=== PATIENT | female | born 1960 | race Caucasian/White ===

== ENCOUNTER 2019-05-21 05:39 | Emergency (ER) | payer BC, OTHER ==
[2019-05-21] MEDS ORDERED: BACITRACIN 0.9 GM PACKET ONE (06:05)
[2019-05-21 06:20] VITALS: BMI 20.2
[2019-05-21] MEDS ORDERED: FAMOTIDINE 20 MG/50 ML IVPB 20 MG/50 ML MG IVPB ONE ×2 (06:44→06:48)
[2019-05-21] MEDS ORDERED: methylPREDNISolone NA SUCC 125 MG/2 ML VIAL IVPUSH ONE (06:44)
[2019-05-21] MEDS ORDERED: methylPREDNISolone NA SUCC 125 MG/2 ML VIAL ONE (06:48)
--- NOTE | 2019-05-21 07:12 | PDOC ---
History of Present Illness - General Chief Complaint: Edema Stated Complaint: FACE SWELLING Time Seen by Provider: 05/21/19 07:12 History Source: Patient, Family Exam Limitations: No Limitations - History of Present Illness Initial Comments: 58 year old female with PMH DM, HLD presented to ED with son for facial swelling after using a face cream. Pt admitted to nausea, shortness of breath. Pt denied vomiting, lightheadedness, chest pain. Pt reported she has not had an allergic reaction like this prior. ROS General: denied fever, chills, generalized weakness. HEENT: denied sore throat, rhinorrhea, ear pain. Cardiovascular: denied chest pain, palpitations, syncope, diaphoresis. Respiratory: admitted to shortness of breath. denied cough, sputum production, hemoptysis. Gastrointestinal: admitted to nausea. denied abdominal pain, vomiting, diarrhea , constipation, blood in stool. Genitourinary: denied dysuria, increased urinary frequency, hematuria, urinary incontinence, flank pain. Back: denied back pain. Musculoskeletal: denied joint pain, muscle pain, joint swelling. Neurological: denied headache, dizziness, numbness, tingling, weakness. Integumentary: denied rash, laceration, abrasion. Hematologic/Lymphatic: denied bruising or bleeding. PE Constitutional: Well-nourished, Well-developed, appearing stated age. HEENT: head is normocephalic, atraumatic. EOMI. PERRLA. generalized facial swelling. Neck: supple. Full ROM. Cardiovascular: regular heart rhythm. no murmurs. no pericardial friction rub. Respiratory: clear to auscultation bilaterally. no crackles, rhonchi or wheezing. no stridor. Gastrointestinal: soft, nontender. normal bowel sounds. no rebound, guarding, masses. Extremities: peripheral pulses intact. no lower extremity edema. Neurological: CN 2-12 grossly intact. moves all four extremities. Psych: awake, alert, oriented x3. follows commands. answers questions appropriately. Past History - Past Medical History Allergies/Adverse Reactions: Allergies Allergy/AdvReac Type Severity Reaction Status Date / Time No Known Allergies Allergy Verified 05/21/19 06:20 Home Medications: Ambulatory Orders Glipizide [Glipizide ER] 5 mg PO BID 02/16/13 Insulin Glargine,Hum.rec.anlog [Lantus (10mL VIAL) -] 20 units SQ HS 02/16/13 Dicyclomine HCl [Bentyl] 20 mg PO Q6H PRN #20 tablet 05/01/15 metFORMIN HCL [Metformin HCl] 500 mg PO DAILY 05/01/15 Famotidine [Pepcid -] 20 mg PO DAILY #7 tablet 05/21/19 predniSONE [Deltasone -] 40 mg PO DAILY #8 tablet 05/21/19 Diabetes: Yes Hypercholesterolemia: Yes - Immunization History Td Vaccination: Yes Immunization Up to Date: Yes - Suicide/Smoking/Psychosocial Hx Smoking Status: No Smoking History: Current every day smoker Have you smoked in the past 12 months: Yes Number of Cigarettes Smoked Daily: 4 Information on smoking cessation initiated: No 'Breaking Loose' booklet given: 09/17/13 Hx Alcohol Use: No Drug/Substance Use Hx: No Substance Use Type: None *Physical Exam - Vital Signs Last Vital Signs Temp Pulse Resp BP Pulse Ox 97.9 F 60 16 131/65 97 05/21/19 07:07 05/21/19 07:07 05/21/19 07:07 05/21/19 07:07 05/21/19 07:07 ED Treatment Course - Medications Given in the ED: ED Medications Discontinued Medications Generic Name Dose Route Start Last Admin Trade Name Freq PRN Reason Stop Dose Admin Diphenhydramine HCl 25 mg 05/21/19 06:44 05/21/19 06:56 Benadryl Injection - IVPUSH 05/21/19 06:45 25 mg ONCE ONE Administration Methylprednisolone Sodium Succinate 125 mg 05/21/19 06:44 05/21/19 06:56 Solu-Medrol - IVPUSH 05/21/19 06:45 125 mg ONCE ONE Administration Medical Decision Making - Medical Decision Making 58 year old female with above PMH presented to ED for facial swelling, SOB, nausea after using a new face cream. Initial Vital Signs Temp Pulse Resp BP Pulse Ox 97.8 F 63 15 135/67 100 05/21/19 05:39 05/21/19 05:39 05/21/19 05:39 05/21/19 05:39 05/21/19 05:39 Afebrile. No tachycardia. No tachypnea. No hypotension. No hypoxia on room air. Labs ordered: none Imaging ordered: none Medications given: pepcid, benadryl, solumedrol Vital Signs Temperature 97.9 F 05/21/19 07:07 Pulse Rate 60 05/21/19 07:07 Respiratory Rate 16 05/21/19 07:07 Blood Pressure 131/65 05/21/19 07:07 O2 Sat by Pulse Oximetry (%) 97 05/21/19 07:07 No tachycardia. No tachypnea. No hypotension. No hypoxia on room air. Pt reported improvement of symptoms, denied shortness of breath, reported she would like to return home. Pt discharged. Discharge medications: Pepcid 20 mg PO daily x7 days, Prednisone 40 mg PO daily x4 days -Over the counter Benadryl *DC/Admit/Observation/Transfer Diagnosis at time of Disposition: Allergic reaction, Facial swelling - Discharge Dispostion Disposition: HOME Condition at time of disposition: Improved Decision to Admit order: No - Prescriptions Prescriptions: Famotidine [Pepcid -] 20 mg PO DAILY #7 tablet predniSONE [Deltasone -] 40 mg PO DAILY #8 tablet - Referrals Referrals: Suly Martinez [Non Staff, Medical] - - Patient Instructions Printed Discharge Instructions: DI for General Allergic Reactions Additional Instructions: You were seen today for an allergic reaction. STOP using all face and body creams. Buy free and clear products. Continue taking Benadryl over the counter, take as advised on label. I have sent a prescription to your pharmacy for Prednisone, a steroid, take as advised on label. Follow up with your primary care doctor within 3 days. Your care is not complete until you follow up. I have given you a referral for an [employer]. Return to the Emergency Department for increasing swelling, difficulty breathing , vomiting, chest pain, shortness of breath, lightheadedness, or any other new, worsening or concerning symptoms. CENTRAL AFRICAN TRANSLATION PROVIDED BY [employer] TRANSLATE Te vieron hoy por janay reaccin alrgica. DEJE de usar todas las cremas faciales y corporales. Compre productos gratuitos y transparentes. Contine tomando Benadryl sin receta mdica, tmelo nilton se indica en la etiqueta. He enviado janay receta a martinez farmacia para la prednisona, un esteroide, shadi nilton se indica en la etiqueta. Regina un seguimiento con martinez mdico de atencin primaria dentro de los 3 jose. Martinez atencin no estar completa hasta que realice el seguimiento. Te he dado janay referencia para un alerglogo. Regrese al Departamento de emergencias para aumentar la hinchazn, dificultad para respirar, vmitos, dolor en el pecho, falta de aliento, aturdimiento o cualquier otro sntoma nuevo, que empeore o se relacione. Print Language: CENTRAL AFRICAN - Post Discharge Activity Forms/Work/School Notes: Back to Work
--- NOTE | 2019-05-21 08:11 | PDOC ---
Attending Attestation - Resident Resident Name: Rena Marin - ED Attending Attestation I have performed the following: I have examined & evaluated the patient, The case was reviewed & discussed with the resident, I agree w/resident's findings & plan, Exceptions are as noted - HPI HPI: 05/21/19 08:04 58yo female who used new face cream that she bought at a spa. Used cream #2 labeled Bleach to her face now with swelling and itching. Pt received benadryl, solumedrol, pepcid. Pt without lip or tongue swelling. No sob. No diarrhea. No stridor or wheezing. Pt speaking in full sentences and tolerating secretions. This was the first time the patient used the cream to her face. - Physicial Exam PE: 05/21/19 08:06 Gen: aaox3, swelling to her eyes and upper cheeks heent: PERRL, EOMI, posterior pharynx without swelling, soft tissue swelling around the eyes and upper cheeks, dry skin to lower face and upper neck with itching - no lip or tongue swelling, uvula midline, no erythema neck: no stridor, no swelling heart: +s1s2 reg lungs: cta b/l abd: soft, nt/nd +bs skin: dry itchy skin to face and upper neck - Medical Decision Making 05/21/19 08:08 a/p: 58yo female with allergic reaction to her topical skin care -pt received allergy meds prior to evaluation -pt feeling much better, itching controlled, swelling improved -per son at the bedside, swelling around eyes has improved -still with soft tissue swelling, but no visual changes per pt -pt states feeling much improved -speaking in full sentences, tolerating secretions -pt did not receive epi and there is no emergent indication for epi -discussed outpt management and follow up with allergy -discussed med dosing and use of epi as outpt -discussed all reasons to return to the ED -answered all questions, son and pt verbalize understanding of all instructions -pt is stable for dc to home
[2019-05-21 08:41] VITALS: BP 152/82; PULSE 70; TEMP 98.2
== END 2019-05-21 08:41 | disposition home or self-care (01) ==
LOC: JER 05:39
PROC: 3E033GC Introduction of Other Therapeutic Substance into Peripheral Vein, Percutaneous Approach (ICD-10-PCS; principal; 2019-05-21)
PROC: 3E033GC Introduction of Other Therapeutic Substance into Peripheral Vein, Percutaneous Approach (ICD-10-PCS; 2019-05-21)
PROC: 3E0333Z Introduction of Anti-inflammatory into Peripheral Vein, Percutaneous Approach (ICD-10-PCS; 2019-05-21)
DX: T78.49XA Other allergy, initial encounter (principal); X58.XXXA Exposure to other specified factors, initial encounter
CPT/HCPCS: 99283-25

== ENCOUNTER 2020-07-08 09:31 | Emergency (ER) | payer OTHER ==
[2020-07-08 09:42] VITALS: BMI 27.8
--- OUTSIDE RECORDS SUMMARY | 2020-07-08 09:44 | XMS ---
:1960 Author Organization [facility] Support Name Relationship Address Phone JUVE DUTTON SON [address] [phone] [place] [address] UE Unavailable Unavailable Unavailable CAESAR GIANG DAUGHTER [address] [place] [address] [place] [address] CAESAR OTOOLE DAUGHTER [address] [place] [address] Re-disclosure Warning The records that you are about to access may contain information from federally- assisted alcohol or drug abuse programs. If such information is present, then the following federally mandated warning applies: This information has been disclosed to you from records protected by federal confidentiality rules (42 CFR part 2). The federal rules prohibit you from making any further disclosure of this information unless further disclosure is expressly permitted by the written consent of the person to whom it pertains or as otherwise permitted by 42 CFR part 2. A general authorization for the release of medical or other information is NOT sufficient for this purpose. The Federal rules restrict any use of the information to criminally investigate or prosecute any alcohol or drug abuse patient.The records that you are about to access may contain highly sensitive health information, the redisclosure of which is protected by Article 27-F of the [facility] Public Health law. If you continue you may haveaccess to information: Regarding HIV / AIDS; Provided by facilities licensed or operated by the [facility] Office of Mental Health; or Provided by the [facility] Office for People With Developmental Disabilities. If such information is present, then the following [facility] mandated warning applies: This information has been disclosed to you from confidential records which are protected by state law. State law prohibits you from making any further disclosure of this information without the specific written consent of the person to whom it pertains, or as otherwise permitted by law. Any unauthorized further disclosure in violation of state law may result in a fine or custodial sentence or both. A general authorization for the release of medical or other information is NOT sufficient authorization for further disclosure. Insurance Providers Payer name Policy type Policy ID Covered Covered alliance party's Policy P pepe / Coverage alliance party ID relationship to [facility] ormation type mead ANA [id number] CAP
--- NOTE | 2020-07-08 10:12 | PDOC ---
History of Present Illness - General Chief Complaint: Constipation Stated Complaint: Constipation/LT LEG PAIN Time Seen by Provider: 07/08/20 09:40 History Source: Patient - History of Present Illness Initial Comments: 07/08/20 10:34 59F w/hx HTN, HLD, DM p/w 3 days of constipation, acute onset abdominal pain. She reports one similar episode of constipation several years ago that resolved in the hospital. She reports being unable to move her bowels for three days, but has been passing gas without difficulty. She reports acute onset 06/30 diffuse abdominal pain today which prompted the ED visit. She denies any nausea, vomiting, weakness, confusion. She has not taken anything for constipation at [facility] before presentation. She endorses chills, and LLE pain as well as pain radiating from her abdomen to her back. Past History - Medical History Allergies/Adverse Reactions: Allergies Allergy/AdvReac Type Severity Reaction Status Date / Time No Known Allergies Allergy Verified 07/08/20 09:37 Home Medications: Ambulatory Orders Ertugliflozin Pidolate [Steglatro] 0 mg PO ASDIR 07/08/20 COPD: No Diabetes: Yes Hypercholesterolemia: Yes - Immunization History Td Vaccination: Yes Immunization Up to Date: Yes - Psycho-Social/Smoking History Smoking Status: No Smoking History: Never smoked Have you smoked in the past 12 months: Yes Number of Cigarettes Smoked Daily: 4 'Breaking Loose' booklet given: 09/17/13 - Substance Abuse Hx (Audit-C & DAST Scrn) How often the patient has a drink containing alcohol: Never Score: In Men: 4 or > Positive; In Women: 3 or > Positive: 0 Screen Result (Pos requires Nsg. Audit-10AR): Negative Review of Systems - Review of Systems Able to Perform ROS?: Yes Comments:: 07/08/20 11:13 GENERAL/CONSTITUTIONAL: No fever or chills. No weakness. HEAD, EYES, EARS, NOSE AND THROAT: No change in vision. No ear pain or discharge. No sore throat. CARDIOVASCULAR: No chest pain or shortness of breath RESPIRATORY: No cough, wheezing, or hemoptysis. GASTROINTESTINAL: Abdominal pain, constipation. No nausea, vomiting, diarrhea or constipation. GENITOURINARY: No dysuria, frequency, or change in urination. MUSCULOSKELETAL: No joint or muscle swelling or pain. No neck or back pain. SKIN: No rash NEUROLOGIC: No headache, vertigo, loss of consciousness, or change in strength/sensation. ENDOCRINE: No increased thirst. No abnormal weight change HEMATOLOGIC/LYMPHATIC: No anemia, easy bleeding, or history of blood clots. ALLERGIC/IMMUNOLOGIC: No hives or skin allergy. *Physical Exam - Vital Signs Last Vital Signs Temp Pulse Resp BP Pulse Ox 98 F 85 18 160/72 100 07/08/20 09:34 07/08/20 09:34 07/08/20 09:34 07/08/20 09:34 07/08/20 09:34 - Physical Exam 07/08/20 11:39 GENERAL: Groaning, clutching abdomen. Awake, alert, and fully oriented HEAD: No signs of trauma, normocephalic, atraumatic EYES: Conjunctival injection. PERRLA, EOMI, sclera anicteric ENT: Auricles normal inspection, hearing grossly normal, nares patent, oropharynx clear without exudates. Moist mucosa NECK: Normal ROM, supple, no lymphadenopathy, JVD, or masses LUNGS: No distress, speaks full sentences, clear to auscultation bilaterally HEART: Regular rate and rhythm, normal S1 and S2, no murmurs, rubs or gallops, peripheral pulses normal and equal bilaterally. ABDOMEN: Diffuse tenderness. Soft, normoactive bowel sounds. No rebound. No masses EXTREMITIES : Normal inspection, Normal range of motion, no edema. No clubbing or cyanosis NEUROLOGICAL: Cranial nerves II through XII grossly intact. Normal speech, no focal sensorimotor deficits SKIN: Warm, Dry, normal turgor, no rashes or lesions noted ED Treatment Course - LABORATORY CBC & Chemistry Diagram: 07/08/20 10:10 07/08/20 10:10 Medical Decision Making - Medical Decision Making 07/08/20 11:43 59F w/hx HTN p/w 3 days of constipation, severe abdominal pain, diffuse tenderness on exam without nausea/vomiting. Ddx uncomplicated constipation, although pain with diffuse tenderness may be out of proportion to typical 3 day constipation concerning for viscus rupture. Obstruction possible, less likely without nausea/vomiting. Plan: KUB CT Abdomen/pelvis w/contrast CBC CMP Mag citrate pending CT Fleet enema pending CT Likely manual disempaction 1L LR Ofirmev Dispo: Likely discharge pending imaging --- CBC, CMP - wnl KUB - no free air noted, constipation On reassessment, patient reports significant reduction of pain s/p ofirmev --- Formal CT read pending, no free air or air fluid levels noted. Patient reports pain has begun to worsen again. --- CT - notable for large amount of stool without obstruction. Discussed results with patient, as well as consent for manual disempaction. On manual disempaction with female mailing manager present, large amount of stool palpated, broken up manually in rectal vault. Plan for fleet enema, mag citrate. --- On reassessment, patient reports large volume formed stool passage with resolution of pain. Plan for discharge with close PCP follow up. Discharge - Discharge Information Problems reviewed: Yes Clinical Impression/Diagnosis: Constipation, Abdominal pain Condition: Stable Disposition: HOME - Admission No - Follow up/Referral - Patient Discharge Instructions Patient Printed Discharge Instructions: DI for Constipation Additional Instructions: You were seen in the ER for constipation. Your symptoms improved after an enema and oral medication. Continue to stay hydrated by drinking water and take over the counter medication as needed to control your constipation. Follow up with your primary care provider as soon as possible, in the next 2-3 days. Return to the ER if you develop high fevers, chest pain, difficulty breathing, intractable vomiting and nausea. - Post Discharge Activity
[2020-07-08] MEDS ORDERED: LACTATED RINGERS SOLUTION 1000 ML INFUS.BAG IV ONE (10:14)
[2020-07-08] MEDS ORDERED: ACETAMINOPHEN 1000 MG/100 ML VIAL (NON FORMULARY) IVPB ONE (10:14)
[2020-07-08] MEDS ORDERED: ACETAMINOPHEN INJECTION 100 ML IVPB ONE (10:24)
[2020-07-08 10:39] LABS: BASO % 0.4 % (0-2.0); EOS % 1.4 % (0-4.5); HEMATOCRIT 30.7 % (32.4-45.2); HEMOGLOBIN 10.2 GM/dL (10.7-15.3); MCH 25.8 pg (25.7-33.7); MCHC 33.2 g/dl (32.0-36.0); MEAN CELL VOLUME 77.7 fl (80-96); MEAN PLT VOLUME 7.9 fl (7.5-11.1); MONO % 3.6 % (3.8-10.2); NEUT % 78.6 % (42.8-82.8); PLATELET COUNT 267 K/MM3 (134-434); RBC 3.95 M/mm3 (3.60-5.2); RDW 14.3 % (11.6-15.6); WHITE BLOOD COUNT 9.9 K/mm3 (4.0-10.0)
[2020-07-08 11:15] LABS: ALBUMIN 3.6 g/dl (3.4-5.0); BILIRUBIN,TOTAL 0.3 mg/dL (0.2-1); BLOOD UREA NITROGEN 38.7 mg/dL (7-18); CALCIUM 9.8 mg/dL (8.5-10.1); CREATININE 1.1 mg/dL (0.55-1.3); POTASSIUM 5.2 mmol/L (3.5-5.1); TOT PROT 7.7 g/dl (6.4-8.2)
[2020-07-08 12:53] LABS: EPI CELLS 18 /uL (0-25.1); HYALINE CASTS 0 /uL (0-3.1); URINE APPEARANCE CLEAR; URINE BACTERIA 1392 /uL (0-1359); URINE BILIRUBIN NEGATIVE (NEGATIVE); URINE COLOR YELLOW; URINE GLUCOSE (UA) 3+ (NEGATIVE); URINE KETONE NEGATIVE (NEGATIVE); URINE LEUK ESTERASE NEGATIVE (NEGATIVE); URINE NITRITE NEGATIVE (NEGATIVE); URINE PROTEIN 2+ (NEGATIVE); URINE RBC 28 /uL (0-23.9); URINE UROBILINOGEN 0.2 mg/dL (0.2-1.0); URINE WBC 4 /uL (0-25.8)
--- NOTE | 2020-07-08 13:18 | PDOC ---
Documentation entered by Robbie Beck SCRIBE, acting as scribe for Abimael Ibrahim MD. Abimael Ibrahim MD: This documentation has been prepared by the nancyibe, Robbie Beck SCRIBE, under my direction and personally reviewed by me in its entirety. I confirm that the documentation accurately reflects all work, treatment, procedures, and medical decision making performed by me. Attending Attestation - Resident Resident Name: Tramaine Alvarado - ED Attending Attestation I have performed the following: I have examined & evaluated the patient, The case was reviewed & discussed with the resident, I agree w/resident's findings & plan, Exceptions are as noted - HPI HPI: 07/08/20 10:09 The patient is a 59 year old female with a significant past medical history of DM and HLD who presents to the emergency department for evaluation of abdominal pain and constipation that began three days ago. The patient reports diffuse abdominal pain and tenderness that began three days ago and has worsened this morning. She endorses flatulence. She notes a similar episode a few years ago. Denies taking anything for relief. LBM: three days ago, normal The patient denies chest/back pain, cough, and shortness of breath. Denies fever, chills, nausea, vomiting. Denies any symptoms. Denies any other symptoms. Allergies: NKA Social Hx: The patient reports she currently smokes 4 cigarettes per day. Denies illicit drug use and alcohol consumption. Surgical Hx: None reported - Physicial Exam PE: 07/08/20 09:58 GENERAL: Awake, alert, and fully oriented, in no acute distress but appears uncomfortable EYES: PERRLA, EOMI, sclera anicteric, conjunctiva clear ENT: Oropharynx clear without exudates. Moist mucosa NECK: Normal ROM, supple, no lymphadenopathy, JVD, or masses LUNGS: Breath sounds equal, clear to auscultation bilaterally. No wheezes, and no crackles HEART: Regular rate and rhythm, normal S1 and S2, no murmurs, rubs or gallops ABDOMEN: Soft, diffuse abd ttp, no CVAT. No guarding, no rebound. No masses EXTREMITIES: Normal range of motion, no edema. No clubbing or cyanosis. No cords, erythema, or tenderness NEUROLOGICAL: Normal speech, cranial nerves intact, equal strength and sensation b/l SKIN: Warm, Dry, normal turgor, no rashes or lesions noted. - Medical Decision Making 07/08/20 12:46 59yo F presents to the ED with diffuse abd pain and constipation for 3 days DDx includes constipation vs obstruction vs colitis vs gastritis vs diverticulitis Plan -labs -UA -CTAP -pain control -reassess 07/08/20 15:[address] scan with no acute pathology. CT scan with large fecal burden. Rectal exam with no impaction, stool is soft in the vault. Patient was given a Fleet enema and moved her bowels. She feels significantly better. Patient is clinically well-appearing and stable for discharge home. I discussed the physical exam findings, ancillary test results and final diagnoses with the patient. I answered all of the patient's questions. The patient was satisfied with the care received and felt comfortable with the discharge plan and treatment plan. The patient will call their primary care physician within 24 hours to arrange follow-up and will return to the Emergency Department with any new, persistent or worsening symptoms. Discharge - Discharge Information Problems reviewed: Yes Clinical Impression/Diagnosis: Constipation, Abdominal pain Condition: Stable Disposition: HOME - Follow up/Referral - Patient Discharge Instructions Patient Printed Discharge Instructions: DI for Constipation Additional Instructions: You were seen in the ER for constipation. Your symptoms improved after an enema and oral medication. Continue to stay hydrated by drinking water and take over the counter medication as needed to control your constipation. Follow up with your primary care provider as soon as possible, in the next 2-3 days. Return to the ER if you develop high fevers, chest pain, difficulty breathing, intractable vomiting and nausea. - Post Discharge Activity
[2020-07-08] MEDS ORDERED: MINERAL OIL ENEMA 133 ML ENEMA PR ONE (14:21)
[2020-07-08] MEDS ORDERED: SODIUM PHOSPHATE/NA BIPHOS 133 ML ENEMA PR ONE (14:39)
[2020-07-08] MEDS ORDERED: MAGNESIUM CITRATE 300 ML BOTTLE PO ONE (14:44)
[2020-07-08] MEDS ORDERED: MAGNESIUM CITRATE 300 ML BOTTLE ONE (15:07)
[2020-07-08 15:53] VITALS: BP 149/89; PULSE 70; TEMP 97.8
== END 2020-07-08 15:54 | disposition home or self-care (01) ==
LOC: JER 09:31
PROC: 3E0333Z Introduction of Anti-inflammatory into Peripheral Vein, Percutaneous Approach (ICD-10-PCS; principal; 2020-07-08)
DX: K59.00 Constipation, unspecified (principal); R10.9 Unspecified abdominal pain
CPT/HCPCS: 36415; 74018-TC-FY; 74177-TC; 80053; 81003; 83605; 83690; 85025; 87086; 99285-25; J0131

== ENCOUNTER 2022-06-02 13:22 | Emergency (ER) | payer OTHER ==
[2022-06-02 13:45] VITALS: BMI 20.7
[2022-06-02] MEDS ORDERED: ACETAMINOPHEN 325 MG TABLET (FP) PO ONE (14:43)
[2022-06-02] MEDS ORDERED: KETOROLAC TROMETHAMINE 30 MG/1 ML VIAL IM ONE (14:43)
[2022-06-02] MEDS ORDERED: ACETAMINOPHEN 325 MG TABLET (FP) ONE (16:43)
[2022-06-02] MEDS ORDERED: KETOROLAC TROMETHAMINE 30 MG/1 ML VIAL ONE (16:43)
[2022-06-02 17:25] VITALS: BP 185/85; PULSE 80; RESP 16; TEMP 98.3
== END 2022-06-02 18:19 | disposition home or self-care (01) ==
LOC: JER 13:22
DX: S82.892A Other fracture of left lower leg, initial encounter for closed fracture (principal); V03.10XA Pedestrian on foot injured in collision with car, pick-up truck or van in traffic accident, initial encounter
CPT/HCPCS: 71101-TC-LT-FY; 73610-TC-LT-FY; 73630-TC-LT; 93005; 93010; 93971-TC; 99284-25

== ENCOUNTER 2024-02-05 19:34 | Inpatient (IN) | payer OTHER ==
[2024-02-05] MEDS ORDERED: ACETAMINOPHEN INJECTION 100 ML IVPB ONE (20:22)
[2024-02-05] MEDS: ACETAMINOPHEN 1000 MG/100 ML BAG IVPB ONE (20:50)
[2024-02-05 21:33] LABS: CHLORIDE 109 mmol/L (98-107); POTASSIUM 4.7 mmol/L (3.5-5.1); SODIUM 135 mmol/L (136-145)
[2024-02-05 21:35] LABS: INR 0.95 (0.83-1.09); PROTHROMBIN TIME (PATIENT) 10.8 SEC (9.7-13.0)
[2024-02-05 21:37] LABS: ALBUMIN 3.2 g/dl (3.4-5.0)
[2024-02-05 21:37] LABS: ACTIVATED PTT 22.5 SECONDS (25.2-36.5)
[2024-02-05 21:38] LABS: ANION GAP 5 mmol/L (4-13); BLOOD UREA NITROGEN 58.5 mg/dL (7-18); CO2 21 mmol/L (21-32); MAGNESIUM 2.5 mg/dL (1.8-2.4)
[2024-02-05 21:40] LABS: BASO % 0.5 % (0-2.0); CREATININE 2.4 mg/dL (0.55-1.3); HEMATOCRIT 25.2 % (32.4-45.2); HEMOGLOBIN 8.5 GM/dL (10.7-15.3); MCHC 33.6 g/dl (32.0-36.0); MEAN CELL VOLUME 77.3 fl (80-96); MEAN PLT VOLUME 8.1 fl (7.5-11.1); MONO % 8.9 % (3.8-10.2); NEUT % 62.6 % (42.8-82.8); PLATELET COUNT 283 10^3/uL (134-434); RBC 3.25 M/mm3 (3.60-5.2); RDW 14.9 % (11.6-15.6); SGPT/ALT 37 U/L (13-61); WHITE BLOOD COUNT 6.7 K/mm3 (4.0-10.0)
[2024-02-05 21:41] LABS: BILIRUBIN,TOTAL 0.3 mg/dL (0.2-1); SGOT/AST 16 U/L (15-37)
[2024-02-05 21:42] LABS: CALCIUM 8.3 mg/dL (8.5-10.1)
[2024-02-05 21:43] LABS: ALK PHOS 106 U/L (45-117); N-TERMINAL BNP 823.5 pg/ml (5-125)
[2024-02-05 21:46] LABS: GLUCOSE,RANDOM 410 mg/dL (74-106)
[2024-02-05] MEDS: KETOROLAC TROMETHAMINE 15 MG/ML VIAL IVPUSH ONE (22:02)
[2024-02-05] MEDS: SODIUM CHLORIDE 0.9% 500 ML INFUS.BAG IV ONE ×2 (22:10→23:50)
[2024-02-05] MEDS ORDERED: MAG HYDROX/AL HYDROX/SIMETH 30 ML UNIT-DOSE CUP ONE (22:13)
[2024-02-05] MEDS ORDERED: FAMOTIDINE 20 MG/50 ML IVPB 20 MG/50 ML MG IVPB ONE (22:14)
[2024-02-05] MEDS ORDERED: ASPIRIN 81 MG CHEWABLE TABLETS ONE (22:29)
[2024-02-05] MEDS: INSULIN REGULAR HUMAN 100 UNITS/ML *VIAL SQ ONE (22:30)
[2024-02-05] MEDS: FAMOTIDINE 20 MG/50 ML IVPB 20 MG/50 ML MG IVPB ONE (22:31)
[2024-02-05] MEDS: MAG HYDROX/AL HYDROX/SIMETH -MYLANTA- ORAL SUSPENSION PO ONE (22:31)
[2024-02-05] MEDS: ASPIRIN 81 MG CHEWABLE TABLETS PO ONE (22:31)
[2024-02-05] MEDS ORDERED: morphine SULFATE 4 MG/ML VIAL ONE (23:42)
[2024-02-05] MEDS ORDERED: ENOXAPARIN NA (PORCINE) 60 MG/0.6 ML DISP.SYRIN SQ ONE (23:42)
[2024-02-05] MEDS: morphine SULFATE 4 MG/ML VIAL IVPUSH ONE (23:55)
[2024-02-05] MEDS: ENOXAPARIN NA (PORCINE) 60 MG/0.6 ML DISP.SYRIN SQ SCH (23:55)
[2024-02-06 01:22] LABS: POTASSIUM 4.9 mmol/L (3.5-5.1)
[2024-02-06 01:34] LABS: BLOOD UREA NITROGEN 58.2 mg/dL (7-18)
[2024-02-06] MEDS ORDERED: CLOPIDOGREL BISULFATE 300 MG TABLET ONE (05:49)
[2024-02-06] MEDS: CLOPIDOGREL BISULFATE 300 MG TABLET PO ONE (06:12)
[2024-02-06] MEDS: ENOXAPARIN NA (PORCINE) 60 MG/0.6 ML DISP.SYRIN SQ ONE (06:28)
[2024-02-06 06:37] LABS: BASO % 0.4 % (0-2.0); EOS % 3.2 % (0-4.5); HEMATOCRIT 22.5 % (32.4-45.2); HEMOGLOBIN 7.4 GM/dL (10.7-15.3); LYMPH % 37.1 % (8-40); MCH 25.7 pg (25.7-33.7); MCHC 32.9 g/dl (32.0-36.0); MEAN PLT VOLUME 7.5 fl (7.5-11.1); MONO % 8.5 % (3.8-10.2); NEUT % 50.8 % (42.8-82.8); PLATELET COUNT 262 10^3/uL (134-434); RBC 2.89 M/mm3 (3.60-5.2); RDW 14.2 % (11.6-15.6); WHITE BLOOD COUNT 7.3 K/mm3 (4.0-10.0)
[2024-02-06 06:47] LABS: POTASSIUM 4.6 mmol/L (3.5-5.1)
[2024-02-06 06:49] LABS: CALCIUM 7.9 mg/dL (8.5-10.1)
[2024-02-06 06:50] LABS: ALBUMIN 3.1 g/dl (3.4-5.0); BLOOD UREA NITROGEN 48.4 mg/dL (7-18); MAGNESIUM 2.2 mg/dL (1.8-2.4)
[2024-02-06 06:53] LABS: CREATININE 1.8 mg/dL (0.55-1.3); PHOSPHOROUS 3.3 mg/dL (2.5-4.9)
[2024-02-06 06:54] LABS: BILIRUBIN,TOTAL 0.2 mg/dL (0.2-1); TOT PROT 6.8 g/dl (6.4-8.2)
[2024-02-06] MEDS: INSULIN ASPART SLIDING SCALE (NOVOLOG) 1 VIAL SQ SCH (07:41)
[2024-02-06] MEDS: METOPROLOL TARTRATE 50 MG TABLET (FP) PO SCH (10:52)
[2024-02-06] MEDS: ASPIRIN 81 MG CHEWABLE TABLETS PO SCH (10:52)
[2024-02-06] MEDS: PANTOPRAZOLE SODIUM 40 MG VIAL IVPUSH SCH (10:53)
[2024-02-06 13:12] LABS: EPI CELLS 5 /uL (0-25.1); HYALINE CASTS 0 /uL (0-3.1); URINE APPEARANCE CLEAR; URINE BACTERIA 226 /uL (0-1359); URINE BILIRUBIN NEGATIVE (NEGATIVE); URINE COLOR YELLOW; URINE GLUCOSE (UA) 3+ (NEGATIVE); URINE KETONE NEGATIVE (NEGATIVE); URINE LEUK ESTERASE NEGATIVE (NEGATIVE); URINE NITRITE NEGATIVE (NEGATIVE); URINE PROTEIN 2+ (NEGATIVE); URINE RBC 2 /uL (0-23.9); URINE UROBILINOGEN 0.2 mg/dL (0.2-1.0); URINE WBC 2 /uL (0-25.8)
[2024-02-06 16:06] VITALS: BMI 21.9
[2024-02-06] MEDS: NIFEdipine E.R. 30 MG TABLET PO SCH (17:23)
[2024-02-06] MEDS ORDERED: ENOXAPARIN NA (PORCINE) 60 MG/0.6 ML DISP.SYRIN SQ SCH (22:00)
[2024-02-06] MEDS: ATORVASTATIN CA 40 MG TABLET (FP) PO SCH (22:17)
[2024-02-07 07:38] LABS: BASO % 0.6 % (0-2.0); EOS % 2.7 % (0-4.5); HEMATOCRIT 26.8 % (32.4-45.2); HEMOGLOBIN 9.1 GM/dL (10.7-15.3); LYMPH % 25.7 % (8-40); MCHC 33.8 g/dl (32.0-36.0); MEAN CELL VOLUME 79.9 fl (80-96); MEAN PLT VOLUME 7.8 fl (7.5-11.1); MONO % 8.9 % (3.8-10.2); NEUT % 62.1 % (42.8-82.8); PLATELET COUNT 257 10^3/uL (134-434); RBC 3.36 M/mm3 (3.60-5.2); RDW 16.3 % (11.6-15.6); WHITE BLOOD COUNT 8.3 K/mm3 (4.0-10.0)
[2024-02-07] MEDS ORDERED: CLOPIDOGREL BISULFATE 75 MG TABLET (FP) PO SCH (10:00)
[2024-02-07] MEDS: PANTOPRAZOLE 40 MG TABLET PO SCH (10:32)
[2024-02-07 11:15] VITALS: RESP 18
[2024-02-07] MEDS ORDERED: INSULIN (NOVOLOG) ASPART 100 UNITS/ML 10ML VIAL ONE (11:34)
[2024-02-08] MEDS ORDERED: INSULIN (NOVOLOG) ASPART 100 UNITS/ML 10ML VIAL ONE (06:06)
[2024-02-08] MEDS ORDERED: NIFEdipine E.R 60 MG TABLET PO SCH (07:40)
[2024-02-08 07:53] LABS: POTASSIUM 5.3 mmol/L (3.5-5.1)
[2024-02-08] MEDS: ACETAMINOPHEN 325 MG TABLET (FP) PO ONE (07:54)
[2024-02-08 08:02] LABS: CALCIUM 8.8 mg/dL (8.5-10.1)
[2024-02-08 08:03] LABS: BLOOD UREA NITROGEN 43.7 mg/dL (7-18)
[2024-02-08 08:06] LABS: CREATININE 2.2 mg/dL (0.55-1.3)
[2024-02-08 08:14] LABS: BASO % 0.4 % (0-2.0); EOS % 3.4 % (0-4.5); HEMATOCRIT 26.4 % (32.4-45.2); HEMOGLOBIN 8.8 GM/dL (10.7-15.3); LYMPH % 28.3 % (8-40); MCH 26.6 pg (25.7-33.7); MCHC 33.5 g/dl (32.0-36.0); MEAN CELL VOLUME 79.4 fl (80-96); MEAN PLT VOLUME 7.9 fl (7.5-11.1); MONO % 9.3 % (3.8-10.2); NEUT % 58.6 % (42.8-82.8); PLATELET COUNT 265 10^3/uL (134-434); RBC 3.33 M/mm3 (3.60-5.2); RDW 16.5 % (11.6-15.6)
[2024-02-08] MEDS: SODIUM BICARBONATE 650 MG TABLET PO SCH (09:24)
[2024-02-08] MEDS: CLOPIDOGREL BISULFATE 75 MG TABLET (FP) PO SCH (09:24)
[2024-02-08] MEDS: SODIUM ZIRCONIUM CYCLOSILICATE (LOKELMA) 5 GM PACKET PO ONE (09:24)
[2024-02-08] MEDS: NIFEdipine E.R. 90 MG TABLET PO SCH (09:24)
[2024-02-08] MEDS: EZETIMIBE 10 MG TABLET (FP) PO SCH (09:24)
[2024-02-08] MEDS ORDERED: ACETAMINOPHEN 325 MG TABLET (FP) PO PRN (11:32)
[2024-02-08] MEDS: INSULIN ASPART SLIDING SCALE (NOVOLOG) 1 VIAL SQ SCH (12:20)
[2024-02-08 15:33] VITALS: BP 121/68; PULSE 71; TEMP 97.5
[2024-02-08] MEDS ORDERED: ATORVASTATIN CA 80 MG TABLET (FP) PO SCH (22:00)
== END 2024-02-08 18:08 | disposition home or self-care (01) | DRG 190 ==
LOC: JER 19:34 → JERBED 02-06 02:21 → J4W 02-06 08:54
PROVIDERS: ADMIT Internal Medicine; ATTEND Internal Medicine
DX: I21.4 Non-ST elevation (NSTEMI) myocardial infarction (principal); E78.5 Hyperlipidemia, unspecified; I12.9 Hypertensive chronic kidney disease with stage 1 through stage 4 chronic kidney disease, or unspecified chronic kidney disease; E11.22 Type 2 diabetes mellitus with diabetic chronic kidney disease; N18.30 Chronic kidney disease, stage 3 unspecified; E11.65 Type 2 diabetes mellitus with hyperglycemia; D50.9 Iron deficiency anemia, unspecified; E78.1 Pure hyperglyceridemia; E87.5 Hyperkalemia; M19.011 Primary osteoarthritis, right shoulder
CPT/HCPCS: 0241U-QW; 36415; 36430; 71045-TC-FY; 76775-TC; 80048; 80053; 80061; 81003; 82728; 82962; 83036; 83540; 83550; 83735; 83880; 84100; 84436; 84443; 84466; 84484; 85025; 85045; 85379; 85610; 85730; 86850; 86900; 86901; 86922; 87651; 93005; 93010; 93306-TC; 99285-25; J0131; P9038; P9058

== ENCOUNTER 2024-04-28 16:11 | Emergency (ER) | payer OTHER ==
[2024-04-28 16:30] VITALS: TEMP 98.3; BMI 23.0
[2024-04-28 17:24] LABS: BASO % 0.5 % (0-2.0); EOS % 2.9 % (0-4.5); HEMATOCRIT 28.7 % (32.4-45.2); HEMOGLOBIN 9.4 GM/dL (10.7-15.3); LYMPH % 19.8 % (8-40); MCH 25.8 pg (25.7-33.7); MCHC 32.6 g/dl (32.0-36.0); MEAN CELL VOLUME 79.1 fl (80-96); MEAN PLT VOLUME 7.5 fl (7.5-11.1); MONO % 7.7 % (3.8-10.2); NEUT % 69.1 % (42.8-82.8); PLATELET COUNT 281 10^3/uL (134-434); RBC 3.62 M/mm3 (3.60-5.2); RDW 14.9 % (11.6-15.6); WHITE BLOOD COUNT 6.6 K/mm3 (4.0-10.0)
[2024-04-28 17:41] LABS: VENOUS BASE EXCESS -4.5 mmol/L (-2-2); VENOUS O2 SATURATION 95.6 % (70-80); VENOUS PCO2 37.7 mmHg (38-52); VENOUS PH 7.355 (7.310-7.410)
[2024-04-28 17:47] LABS: INR 1.01 (0.83-1.09); PROTHROMBIN TIME (PATIENT) 11.4 SEC (9.7-13.0)
[2024-04-28 17:50] LABS: ACTIVATED PTT 34.3 SECONDS (25.2-36.5)
[2024-04-28] MEDS: SODIUM CHLORIDE 1,000 ML IV ONE (17:54)
[2024-04-28 17:58] LABS: CHLORIDE 108 mmol/L (98-107); SODIUM 135 mmol/L (136-145)
[2024-04-28 18:00] LABS: CALCIUM 8.4 mg/dL (8.5-10.1)
[2024-04-28 18:02] LABS: ALBUMIN 3.2 g/dl (3.4-5.0); ANION GAP 6 mmol/L (4-13); BLOOD UREA NITROGEN 45.9 mg/dL (7-18); CO2 21 mmol/L (21-32)
[2024-04-28 18:04] LABS: CREATININE 2.3 mg/dL (0.55-1.3); SGOT/AST 10 U/L (15-37); SGPT/ALT 22 U/L (13-61)
[2024-04-28 18:06] LABS: CHOLESTEROL 349 mg/dL (50-200)
[2024-04-28 18:07] LABS: BILIRUBIN,TOTAL 0.5 mg/dL (0.2-1); LDL CHOLESTEROL (ONLY SJRH) 141 mg/dL (5-100); TOT PROT 7.3 g/dl (6.4-8.2)
[2024-04-28 18:08] LABS: ALK PHOS 110 U/L (45-117); GLUCOSE,RANDOM 444 mg/dL (74-106); HDL CHOLESTEROL 36 mg/dL (40-60)
[2024-04-28] MEDS ORDERED: INSULIN REGULAR HUMAN 100 UNITS/ML *VIAL ONE (18:40)
[2024-04-28] MEDS: INSULIN REGULAR HUMAN 100 UNITS/ML *VIAL SQ ONE (18:47)
[2024-04-28] MEDS: INSULIN (NOVOLOG) ASPART 100 UNITS/ML 10ML VIAL SQ ONE (18:47)
[2024-04-28 18:49] VITALS: RESP 18
[2024-04-28] MEDS ORDERED: LABETALOL HCL 20 MG/4 ML VIAL ONE (20:02)
[2024-04-28 20:03] LABS: EPI CELLS 13 /uL (0-25.1); HYALINE CASTS 1 /uL (0-3.1); PH,URINE 6.5 (5.0-8.0); URINE APPEARANCE CLEAR; URINE BACTERIA 548 /uL (0-1359); URINE BILIRUBIN NEGATIVE (NEGATIVE); URINE COLOR YELLOW; URINE GLUCOSE (UA) 3+ (NEGATIVE); URINE KETONE NEGATIVE (NEGATIVE); URINE LEUK ESTERASE NEGATIVE (NEGATIVE); URINE NITRITE NEGATIVE (NEGATIVE); URINE PROTEIN 2+ (NEGATIVE); URINE RBC 10 /uL (0-23.9); URINE UROBILINOGEN 0.2 mg/dL (0.2-1.0); URINE WBC 4 /uL (0-25.8)
[2024-04-28] MEDS: LABETALOL HCL 5 MG/1 ML (100MG/20 ML VIAL) IVPUSH ONE (20:07)
[2024-04-28 20:20] VITALS: BP 194/70; PULSE 58
== END 2024-04-28 22:05 | disposition short-term general hospital (02) ==
LOC: JER 16:11
PROC: 3E033GC Introduction of Other Therapeutic Substance into Peripheral Vein, Percutaneous Approach (ICD-10-PCS; principal; 2024-04-28)
DX: H53.60 Unspecified night blindness (principal)
CPT/HCPCS: 36415; 70450-TC; 80053; 80061; 81003; 82010; 82550; 82803; 82962; 83036; 84484; 85025; 85610; 85730; 86850; 86900; 86901; 93005; 93010; 99285-25